=== PATIENT | female | born 1955 | race Caucasian/White ===

== ENCOUNTER → 2017-11-21 | Outpatient (CLI) | payer BC ==
[~2017-11-21] MED LIST: DOCUSATE SODIU100 MG PO; HYDROCHLOROTHIA25 M2 PO; METAMUCIL1 EAC1 PO; NAPROSYN500 MG PO; OMEPRAZOLE 20 M20 M1 PO; PERCOCET PO; XARELTO10 M1 PO
== END ==
LOC: M.MRI 10:58
DX: M17.0 Bilateral primary osteoarthritis of knee (principal); M19.90 Unspecified osteoarthritis, unspecified site

== ENCOUNTER 2018-01-15 06:59 | Inpatient (IN) | payer BC ==
[2018-01-03 09:54] LABS: HEMATOCRIT 35.1 % (37.0-47.0); HEMOGLOBIN 11.1 gm/dL (12.0-15.0); MCHC 31.6 g/dL (28.0-37.0); MCV 79.1 fL (80.0-100.0); MPV 8.7 fl. (7.2-11.1); RBC 4.43 mil/uL (4.20-5.00); RDW-CV 16.4 % (10.5-14.5); WBC 11.1 thou/uL (4.0-11.0)
[2018-01-03 09:56] LABS: URINE BILIRUBIN NEGATIVE (Negative); URINE BLOOD NEGATIVE (Negative); URINE CLARITY CLEAR; URINE COLOR YELLOW; URINE GLUCOSE-RANDOM NEGATIVE (Negative); URINE KETONES NEGATIVE (Negative); URINE NITRITE-REFLEX NEGATIVE (Negative); URINE PROTEIN NEGATIVE (Negative); URINE SPECIFIC GRAVITY 1.015 (1.005-1.030); URINE UROBILINOGEN 0.2 E.U./dl (0.2-1.0)
[2018-01-03 09:57] LABS: URINE LEUKOCYTES-REFLEX 2+ (Negative)
[2018-01-03 10:08] LABS: ALBUMIN 3.5 g/dL (3.4-5.0); CALCIUM 9.1 mg/dL (8.5-10.1); POTASSIUM 3.7 mmol/L (3.5-5.1); TOTAL BILIRUBIN 0.7 mg/dL (<0.1-1.0); TOTAL PROTEIN 8.1 g/dL (6.4-8.2)
[2018-01-03 10:11] LABS: BACTERIA-REFLEX 1-9 Few /HPF (None Seen); CASTS None Seen /LPF (None Seen); CRYSTALS None Seen /LPF (None Seen); MUCUS None Seen strn/LPF (None Seen); SQUAMOUS 4-10 Moderate /LPF (0-3); URINE RBC 0-2 Rare /HPF (0-2); URINE WBC-REFLEX 6-15 Few /HPF (0-5)
--- NOTE | 2018-01-03 13:53 | EKG ---
[place] [address] ELECTROCARDIOGRAM REPORT Name: CARLOS MITCHELL Room: PRE IN [facility]#: [id number] Admission: Attend Phys: Froylan Marie Discharge: Date of : 57 Report #: [id number] THIS REPORT FOR: //name// [facility] Test Date: 2018-01-03 Test Time: 09:30:13 Pat Name: CARLOS MITCHELL Department: Room: Gender: F Blueprint Reader: IRISH : 1955 Requested By: Angel Vasquez Order Number: [id number] Reading MD: Alex Baig Measurements Intervals [place] Rate: 79 P: 45 [place]: 158 QRS: -7 QRSD: 97 T: 51 QT: 403 QTc: 463 Interpretive Statements Sinus rhythm Left ventricular hypertrophy with repolarization changes Anterior Q waves, possibly due to LVH Baseline wander in lead(s) V1 No previous ECG available for comparison Electronically Signed On 01-03-2018 13:53:43 CDT by Alex Baig [email or web address] <ELECTRONICALLY SIGNED> By: Alex Baig MD, [facility] 01/03/18 1353 9 9 Alex Baig MD, FACC /EPI
[~2018-01-15] VITALS: Ht 165.1 cm; Wt 134.7 kg
[~2018-01-15 06:59] MED LIST changes: -DOCUSATE SODIU100 MG PO; -METAMUCIL1 EAC1 PO; -PERCOCET PO; -XARELTO10 M1 PO
[2018-01-15 07:38] VITALS: BP 164/92
[2018-01-15 11:15] VITALS: BP 155/74
[2018-01-15 16:00] VITALS: BP 124/63
[2018-01-15 21:00] VITALS: BP 148/62
[2018-01-16 00:22] VITALS: BP 139/59
[2018-01-16 04:00] VITALS: BP 142/67
[2018-01-16 04:20] LABS: HEMATOCRIT 31.1 % (37.0-47.0); HEMOGLOBIN 9.9 gm/dL (12.0-15.0)
[2018-01-16 09:00] VITALS: BP 152/76
[2018-01-16 11:39] VITALS: BP 142/67
[2018-01-16 16:37] VITALS: BP 142/73
[2018-01-16 21:15] VITALS: BP 159/86
[2018-01-17 00:37] VITALS: BP 142/50
[2018-01-17 04:00] VITALS: BP 137/66
[2018-01-17 08:00] VITALS: BP 121/65
[2018-01-17] MEDS ORDERED: DOCUSATE SODIU100 MG PO (11:57)
[2018-01-17] MEDS ORDERED: XARELTO10 M1 PO (11:59)
[2018-01-17] MEDS ORDERED: PERCOCET PO (12:01)
[2018-01-17] MEDS ORDERED: METAMUCIL1 EAC1 PO ×2 (12:01→12:02)
--- NOTE | 2018-01-18 10:08 | PATH ---
[address] [address] PATHOLOGY RPT PROCEDURE Name: LISSCAROLACARLOS S Room: [address] IN .R.#: [id number] Admission: 01/15/18 Date of : 57 Discharge: 01/17/18 Report #: [id number] Path Case #: [id number] [facility] Accession Number: [id number] . 01 Material submitted: . LEFT KNEE BONE AND TISSUE . 01 Clinical history: . Left knee effusion, left knee degenerative joint disease . 02 Diagnosis: Left knee bone and tissue, total knee replacement: - Benign meniscus, mild non-specific chronic synovitis and benign bone and cartilage with severe degenerative changes. (AZALIA:; 01/17/18) . . QRQ/01/17/2018 . 02 Electronically signed: . Abdulkadir Baker MD, Pathologist NPI- [id number] . 01 Gross description: . Received in formalin labeled "Carlos Garcia, left knee bone and tissue," are multiple segments of bone, including tibial plateau, measuring 13.8 x 11.2 x 2.0 cm in aggregate dimensions. Soft tissue and meniscus are present. The specimen displays focal eburnation of the articular surfaces. Sampler Tester bone and soft tissue are submitted in cassette A1, following decalcification. (DAC; 01/16/2018) XDC/XDC . 02 CPT . 526723, [id number] Performed at: 01 [facility] [address], [place], [place] [id number] MD Garrett Nash MD Phone: [phone] Performed at: [address] [facility] [address] [place], [place] [id number] MD Abdulkadir Baker MD Phone: [phone]
--- NOTE | 2018-01-29 11:47 | OP ---
[facility] [address] [place] [address] OPERATIVE REPORT Name: CARLOS MITCHELL Room: [address] IN .R.#: [id number] Admission: 01/15/18 Attend Phys: Froylan Marie Discharge: 01/17/18 Date of : 57 Report #: [id number] THIS REPORT FOR: //name// CC: Anny Arceo DATE OF SERVICE: 01/15/2018 PREOPERATIVE DIAGNOSIS: Left knee osteoarthritis. POSTOPERATIVE DIAGNOSIS: Left knee osteoarthritis. PROCEDURE: Left total knee arthroplasty. SURGEON: Angel Vasquez II, DO COMPETITIVE INTELLIGENCE ANALYST: NASIM Theodore ANESTHESIA: General endotracheal. ESTIMATED BLOOD LOSS: 50 mL. ANTIBIOTICS: Ancef preoperatively. DRAINS: Medium Hemovac. COMPLICATIONS: None. CONDITION: The patient is stable to recovery room. IMPLANTS: Listed in the operative record and progress note. BRIEF HISTORY: The patient was seen in preoperative area. Preop H and P was performed. Site was marked, questions were answered. Risks and benefits were discussed with the patient in detail about surgery. The patient wished to proceed and assumed all risks. DESCRIPTION OF PROCEDURE: The patient was taken to the operative suite, placed supine on the OR table and given appropriate anesthesia. A well-padded tourniquet applied to upper thigh, was inflated to 300 mmHg after gravity exsanguination. The operative knee was sterilely prepped and draped. Surgery began with a midline incision. This was carried down through subcutaneous tissues. A medial parapatellar arthrotomy was performed and carried down to bone. The patella was then everted and excess soft tissue was removed from the [address] [address] OPERATIVE REPORT Name: CARLOS MITCHELL Room: [address] IN [facility].#: [id number] Admission: 01/15/18 Attend Phys: Froylan Marie Discharge: 01/17/18 Date of : 57 Report #: [id number] femur. Femoral cutting block was then applied, checked with a drop sebastián for rotational alignment, pinned in appropriate position and appropriate cuts were made. A 4-in-1 cutting block was then applied, checked for rotation alignment, pinned in appropriate position, appropriate cuts were made. The tibia was then exposed. The excess meniscus was removed. Retractor was placed on the collateral ligaments. The tibial cutting block was then applied, pinned in appropriate position, checked with a drop sebastián for rotational alignment and slope, and appropriate cut was made. The tibial bone was removed. The tibial base plate was then applied, checked for rotational alignment with the drop sebastián and pinned into appropriate position. The pin was then applied and box cut was reamed. This was then trialed with appropriate spacer, which was shown to have excellent fit and fill and excellent stability of the knee through all range of motion. Patella was then reamed in forward fashion and sized to appropriate size. Three peg holes were drilled. The knee was then trialed and shown to have excellent fit in flexion, extension and excellent tracking of the patella within the groove. These trials were removed. The tibia was punched in appropriate fashion. Bone ends were cleansed with Pulsavac irrigation and cement was mixed and applied to the final implants. It was then malleted in the position and held the knee in extension and compressed to allow the cement to cure. After it cured, excess was removed utilizing Gypsy and osteotome. Wound was then copiously irrigated. The final spacer was then malleted into position. The tourniquet was deflated. Hemostasis was obtained with electrocautery. The pain cocktail was injected, PRP gel was sprayed throughout the ventral aspect of the knee. Medium Hemovac drain was then applied. Capsule was closed with 2 FiberWire and 1 Vicryl in [id number] fashion. Skin was closed with 2-0 Vicryl and running 3-0 Monocryl. Dermabond and dressing was then applied. Dejan wrap and PolarCare were applied. The patient transported to recovery in stable condition. Counts were correct throughout the procedure. <ELECTRONICALLY SIGNED> By: Angel Vasquez II, DO 01/29/18 [id number] Vasquez II, DO /nt
== END 2018-01-17 15:25 | disposition home health service (06) | DRG 470 ==
LOC: M.ORTHSURG 06:59 → M.TBA 06:59 → M.PRE 07:00 → M.ORTHSURG 11:02 → M.PRE 12:11 → M.ORTHSURG 01-17 15:25
PROVIDERS: Orthopaedic Surgery; ADMIT Internal Medicine
PROC: 0SRD0J9 Replacement of Left Knee Joint with Synthetic Substitute, Cemented, Open Approach (ICD-10-PCS; principal; 2018-01-15)
DX: M17.12 Unilateral primary osteoarthritis, left knee (principal); Z68.42 Body mass index [BMI] 45.0-49.9, adult; K21.9 Gastro-esophageal reflux disease without esophagitis; E66.9 Obesity, unspecified; Z90.710 Acquired absence of both cervix and uterus; Z79.899 Other long term (current) drug therapy